=== PATIENT | male | born 1965 | race Caucasian/White ===

== ENCOUNTER 2022-05-30 11:10 | Inpatient (IN) | payer MEDICAID ==
[~2022-05-30] VITALS: Ht 165.1 cm; Wt 55.6 kg
[2022-05-30] MEDS ORDERED: SODIUM CHLORIDE 0.9% 1,000 ML IV ONE ×2 (12:00→15:30)
[2022-05-30 12:02] LABS: BASOPHILS % 0.3 % (0.0-2.0); EOSINOPHILS % 0.6 % (0.0-5.0); HEMATOCRIT. 34.4 % (42.0-52.0); HEMOGLOBIN. 12.1 g/dL (14.0-18.0); LYMPHOCYTES % 13.2 % (20.0-50.0); MEAN CORPUSCULAR HEMOGLOBIN 29.8 pg (28.0-32.0); MEAN PLATELET VOLUME 9.1 fl (7.4-10.4); MONOCYTES % 4.2 % (2.0-8.0); NEUTROPHILS % 81.7 % (40.0-76.0); PLATELET 261 x1000/uL (130-400); RED BLOOD CELL COUNT 4.05 mill/uL (4.7-6.1); RED CELL DISTRIBUTION WIDTH 14.8 % (11.6-14.6)
[2022-05-30 12:09] LABS: PROTHROMBIN TIME 10.7 sec (9.6-11.0)
[2022-05-30 12:10] LABS: CHLORIDE 95 mEq/L (98-107)
[2022-05-30 12:15] LABS: ETHANOL BLOOD < 10 mg/dL
[2022-05-30 12:21] LABS: BETA HYDROXYBUTYRATE 1.9 mMol/L (0.0-0.3); PHOSPHORUS 6.5 mg/dL (2.5-4.9)
[2022-05-30] MEDS ORDERED: ONDANSETRON HCL 4MG/2ML INJ IV ONE (14:30)
[2022-05-30] MEDS ORDERED: METOCLOPRAMIDE HCL 10MG/2ML VIAL IV ONE (14:30)
[2022-05-30] MEDS ORDERED: DEXTROSE 50% WATER 50ML SYRINGE IV PRN ×2 (15:30→17:00)
[2022-05-30] MEDS ORDERED: MAGNESIUM/ALUMINUM HYDROXIDE/SIMETHICONE 30ML UDC PO PRN (15:45)
[2022-05-30] MEDS ORDERED: ACETAMINOPHEN 325MG TABLET PO PRN ×2 (15:45)
[2022-05-30] MEDS ORDERED: IPRATROPIUM/ALBUTEROL 0.5-3(2.5)MG/3ML NEB HHN PRN (15:45)
[2022-05-30] MEDS ORDERED: GUAIFENESIN 200MG/10ML SUGAR FREE UDC PO PRN (15:45)
[2022-05-30] MEDS ORDERED: DOCUSATE SODIUM 100MG CAPSULE PO PRN (15:45)
[2022-05-30] MEDS ORDERED: CLONIDINE 0.1MG TABLET PO PRN (15:45)
[2022-05-30] MEDS ORDERED: HYDROCODONE/ACETAMINOPHEN 5/325MG TABLET PO PRN (15:45)
[2022-05-30] MEDS ORDERED: INSULIN REGULAR (HUMULIN R) 300UNITS/3ML VIAL IV NR (16:15)
[2022-05-30] MEDS: SEVELAMER CARBONATE 800 MG TABLET PO SCH (17:00)
[2022-05-30] MEDS ORDERED: BLOOD SUGAR DIAGNOSTIC STRIP TEST SCH (17:00)
[2022-05-30] MEDS: ENOXAPARIN 30MG/0.3ML SYR SUBCUT SCH (17:13)
[2022-05-30] MEDS: BLOOD SUGAR DIAGNOSTIC STRIP TEST SCH ×2 (17:14→20:04)
[2022-05-30] MEDS ORDERED: PIPERACILLIN/TAZ 3.375G PREMIX 50 ML IV NR (17:15)
[2022-05-30 17:30] VITALS: BP 158/88
[2022-05-30] MEDS: INSULIN LISPRO 100 UNITS/ML SUBCUT SCH ×2 (17:32→20:04)
[2022-05-30 17:49] VITALS: BP 158/88
[2022-05-30 18:05] LABS: BG BASE EXCESS 2.5 mmol/L (-2.0-2.0); BG CARBOXYHEMOGLOBIN 0.2 % (0.5-1.5); BG DEOXYHEMOGLOBIN 4.6 % (0.0-5.0); BG FRACTION INSPIRED OXYGEN 21; BG HCO3 ACT 28.4 mmol/L (22.0-26.0); BG METHEMOGLOBIN 0.2 % (0.0-1.5); BG OXYGEN SATURATION 95.4 % (92.0-98.5); BG PCO2 48.7 mmHg (35.0-45.0); BG PH 7.383 (7.350-7.450); BG PO2 83.6 mmHg (75.0-100.0); BG SAMPLE SITE RIGHT BRACHIAL; BG VENT MODE ROOM AIR
[2022-05-30] MEDS ORDERED: INSULIN LISPRO 100 UNITS/ML SUBCUT SCH (18:20)
[2022-05-30 20:00] VITALS: BP 154/80
[2022-05-30] MEDS: ONDANSETRON HCL 4MG/2ML INJ IV PRN (20:10)
[2022-05-30] MEDS: SODIUM CHLORIDE 0.9% 1,000 ML IV SCH (20:10)
[2022-05-30 21:52] LABS: TOTAL IRON BINDING CAPACITY 250 ug/dL (250-450)
[2022-05-30] MEDS: INSULIN GLARGINE 100 UNITS/ML SUBCUT SCH (21:59)
[2022-05-30 22:04] LABS: FERRITIN 565 ng/mL (22-322)
[2022-05-30 22:26] LABS: VITAMIN B12 SERUM 979 pg/mL (211-911)
[2022-05-30] MEDS ORDERED: *PATIENT'S OWN MEDICATION STORAGE XX SCH (23:15)
[2022-05-30] MEDS ORDERED: TORS20TA4 PO (23:18)
[2022-05-30] MEDS ORDERED: LOSA25TA26 PO (23:18)
[2022-05-30] MEDS ORDERED: ATOR10TA69 PO (23:18)
[2022-05-30] MEDS ORDERED: SEVE800T8 MT (23:18)
[2022-05-30] MEDS ORDERED: CARV3.1242 PO (23:18)
[2022-05-30] MEDS ORDERED: AMLO10TA80 PO (23:18)
[2022-05-30] MEDS ORDERED: ERGO1250 (23:18)
[2022-05-30] MEDS ORDERED: FERR325T30 PO (23:18)
[2022-05-30] MEDS ORDERED: EMPA10TA PO (23:18)
[2022-05-31] VITALS: BP 147/86
[2022-05-31 04:00] VITALS: BP 159/78
[2022-05-31] MEDS: ONDANSETRON HCL 4MG/2ML INJ IV PRN ×3 (05:35→18:56)
[2022-05-31 06:03] LABS: BASOPHILS % 0.3 % (0.0-2.0); EOSINOPHILS % 1.7 % (0.0-5.0); HEMATOCRIT. 29.7 % (42.0-52.0); HEMOGLOBIN. 10.4 g/dL (14.0-18.0); LYMPHOCYTES % 20.6 % (20.0-50.0); MEAN CORPUSCULAR HEMOGLOBIN 30.3 pg (28.0-32.0); MEAN CORPUSCULAR VOLUME 86.3 fL (80.0-94.0); MEAN PLATELET VOLUME 9.4 fl (7.4-10.4); MONOCYTES % 5.7 % (2.0-8.0); NEUTROPHILS % 71.7 % (40.0-76.0); PLATELET 234 x1000/uL (130-400); RED BLOOD CELL COUNT 3.44 mill/uL (4.7-6.1); RED CELL DISTRIBUTION WIDTH 14.8 % (11.6-14.6)
[2022-05-31] MEDS: BLOOD SUGAR DIAGNOSTIC STRIP TEST SCH ×4 (06:12→20:51)
[2022-05-31] MEDS: SEVELAMER CARBONATE 800 MG TABLET PO SCH ×3 (06:13→16:31)
[2022-05-31] MEDS: SODIUM CHLORIDE 0.9% 1,000 ML IV SCH (06:22)
[2022-05-31] MEDS: INSULIN LISPRO 100 UNITS/ML SUBCUT SCH ×4 (06:23→20:52)
[2022-05-31 07:10] LABS: CHLORIDE 103 mEq/L (98-107); HDL CHOLESTEROL 49 mg/dL (40-59); LDL CHOLESTEROL 81 mg/dL (5-100); T4 FREE 1.53 ng/dL (0.76-1.46)
[2022-05-31 08:00] VITALS: BP 163/88
[2022-05-31] MEDS ORDERED: KCL 20MEQ/100ML PREMIX 100 ML IV SCH (09:00)
[2022-05-31] MEDS ORDERED: PIPERACILLIN/TAZOBACTAM 3.375 G in DEXTROSE 5% WATER 50 ML IV SCH (09:00)
[2022-05-31] MEDS ORDERED: PANTOPRAZOLE SODIUM 40 MG/VIAL IV SCH (09:00)
[2022-05-31] MEDS: AMLODIPINE 10MG TABLET PO SCH (09:49)
[2022-05-31] MEDS: SODIUM CHLORIDE 0.45% 1,000 ML IV SCH (09:59)
[2022-05-31] MEDS ORDERED: ALBUTEROL (0.083%) 2.5MG/3ML NEB HHN PRN (10:15)
[2022-05-31] MEDS ORDERED: NALOXONE HCL 0.4MG/ML VIAL IV PRN (10:15)
[2022-05-31] MEDS ORDERED: IPRATROPIUM BROMIDE (0.02%) 0.5MG/2.5ML NEB HHN PRN (10:15)
[2022-05-31] MEDS: PIPERACILLIN/TAZOBACTAM 3.375 G in DEXTROSE 5% WATER 50 ML IV SCH ×2 (11:15→21:27)
[2022-05-31 12:00] VITALS: BP 136/77
[2022-05-31 12:51] LABS: CLARITY URINE CLEAR (CLEAR); COLOR URINE YELLOW (YELLOW); KETONES URINE 1+ (NEGATIVE); LEUKOCYTE ESTERASE URINE NEGATIVE (NEGATIVE); NITRITE URINE NEGATIVE (NEGATIVE); OCCULT BLOOD URINE 1+ (NEGATIVE); PH URINE 5.5 (4.5-8.0); PROTEIN URINE 4+ (NEGATIVE); SPECIFIC GRAVITY URINE 1.025 (1.005-1.030); UROBILINOGEN URINE 0.2 E.U./dL (0.2-1.0)
[2022-05-31 13:28] LABS: CREATINE KINASE 73 IU/L (39-308)
[2022-05-31 13:33] LABS: *AMPHETAMINES SCREEN URINE NEGATIVE (NEGATIVE); *BARBITURATES SCREEN URINE NEGATIVE (NEGATIVE); *BENZODIAZEPINES SCREEN URINE NEGATIVE (NEGATIVE); *COCAINE SCREEN URINE NEGATIVE (NEGATIVE); CANNABINOID URINE SCREEN NEGATIVE (NEGATIVE); METHADONE URINE SCREEN NEGATIVE (NEGATIVE); OPIATES URINE SCREEN NEGATIVE (NEGATIVE); PHENCYCLIDINE URINE SCREEN NEGATIVE (NEGATIVE)
[2022-05-31 16:00] VITALS: BP 140/70
[2022-05-31] MEDS ORDERED: PROCHLORPERAZINE 10MG/2ML VIAL IV PRN (17:00)
[2022-05-31] MEDS: ENOXAPARIN 30MG/0.3ML SYR SUBCUT SCH (17:00)
[2022-05-31] MEDS: PANTOPRAZOLE SODIUM 40 MG/VIAL IV SCH (18:56)
[2022-05-31 20:00] VITALS: BP_SYST 148; BP_SYST 150; BP_DIAS 80; BP_DIAS 83
[2022-05-31] MEDS: INSULIN GLARGINE 100 UNITS/ML SUBCUT SCH (22:00)
[2022-05-31 22:08] LABS: HEPATITIS B SURFACE ANTIGEN NEGATIVE
[2022-06-01] VITALS: BP 156/82
[2022-06-01 04:00] VITALS: BP 149/80
[2022-06-01] MEDS: SODIUM CHLORIDE 0.45% 1,000 ML IV SCH ×2 (04:48→22:04)
[2022-06-01] MEDS: BLOOD SUGAR DIAGNOSTIC STRIP TEST SCH ×4 (05:43→21:58)
[2022-06-01] MEDS: INSULIN LISPRO 100 UNITS/ML SUBCUT SCH ×4 (05:46→22:00)
[2022-06-01] MEDS: ONDANSETRON HCL 4MG/2ML INJ IV PRN ×3 (06:29→22:04)
[2022-06-01 06:57] LABS: BASOPHILS % 0.4 % (0.0-2.0); EOSINOPHILS % 2.2 % (0.0-5.0); HEMATOCRIT. 29.3 % (42.0-52.0); HEMOGLOBIN. 10.1 g/dL (14.0-18.0); LYMPHOCYTES % 19.9 % (20.0-50.0); MEAN CORPUSCULAR HEMOGLOBIN 30.5 pg (28.0-32.0); MEAN CORPUSCULAR VOLUME 88.6 fL (80.0-94.0); MEAN PLATELET VOLUME 9.4 fl (7.4-10.4); MONOCYTES % 3.6 % (2.0-8.0); NEUTROPHILS % 73.9 % (40.0-76.0); PLATELET 186 x1000/uL (130-400); RED CELL DISTRIBUTION WIDTH 14.8 % (11.6-14.6)
[2022-06-01] MEDS: SEVELAMER CARBONATE 800 MG TABLET PO SCH ×3 (07:10→17:10)
[2022-06-01 08:00] VITALS: BP 163/88
[2022-06-01] MEDS ORDERED: POTASSIUM CHLORIDE 20MEQ TABLET SR PO SCH (08:30)
[2022-06-01] MEDS: PIPERACILLIN/TAZOBACTAM 3.375 G in DEXTROSE 5% WATER 50 ML IV SCH ×2 (08:47→21:58)
[2022-06-01] MEDS: PANTOPRAZOLE SODIUM 40 MG/VIAL IV SCH ×2 (08:47→18:42)
[2022-06-01] MEDS: AMLODIPINE 10MG TABLET PO SCH (08:47)
[2022-06-01 10:13] LABS: FOLIC ACID (FOLATE) SERUM >20 ng/mL ng/mL (>5.38)
[2022-06-01 12:00] VITALS: BP 141/70
[2022-06-01] MEDS ORDERED: POTASSIUM CHLORIDE INJ 40 MEQ in DEXT 5% WATER 250 ML IV ONE (12:30)
[2022-06-01] MEDS: KCL 20MEQ/100ML X 2 FOR TOTAL KCL 40MEQ/200ML IV SCH ×2 (14:32→16:43)
[2022-06-01 16:00] VITALS: BP 152/80
[2022-06-01] MEDS: ENOXAPARIN 30MG/0.3ML SYR SUBCUT SCH (18:42)
[2022-06-01 18:48] LABS: PHOSPHORUS 4.2 mg/dL (2.5-4.9)
[2022-06-01 20:00] VITALS: BP 139/88
[2022-06-01] MEDS: INSULIN GLARGINE 100 UNITS/ML SUBCUT SCH (22:04)
[2022-06-02] VITALS: BP 152/88
[2022-06-02 04:00] VITALS: BP 145/66
[2022-06-02] MEDS: BLOOD SUGAR DIAGNOSTIC STRIP TEST SCH ×2 (05:51→12:35)
[2022-06-02] MEDS: INSULIN LISPRO 100 UNITS/ML SUBCUT SCH ×2 (05:51→12:39)
[2022-06-02 05:52] VITALS: BP 149/89
[2022-06-02 06:38] LABS: BASOPHILS % 0.5 % (0.0-2.0); EOSINOPHILS % 4.1 % (0.0-5.0); HEMATOCRIT. 28.7 % (42.0-52.0); HEMOGLOBIN. 10.3 g/dL (14.0-18.0); LYMPHOCYTES % 22.9 % (20.0-50.0); MEAN CORPUSCULAR HEMOGLOBIN 31.7 pg (28.0-32.0); MEAN CORPUSCULAR VOLUME 87.9 fL (80.0-94.0); MONOCYTES % 5.6 % (2.0-8.0); NEUTROPHILS % 66.9 % (40.0-76.0); PLATELET 176 x1000/uL (130-400); RED BLOOD CELL COUNT 3.26 mill/uL (4.7-6.1); RED CELL DISTRIBUTION WIDTH 14.4 % (11.6-14.6)
[2022-06-02 07:10] LABS: PHOSPHORUS 3.3 mg/dL (2.5-4.9)
[2022-06-02] MEDS: SEVELAMER CARBONATE 800 MG TABLET PO SCH ×2 (07:10→12:10)
[2022-06-02 08:00] VITALS: BP 142/86
[2022-06-02] MEDS ORDERED: POTASSIUM CHLORIDE 20MEQ TABLET SR PO NR (08:00)
[2022-06-02] MEDS: POTASSIUM CHLORIDE 20MEQ TABLET SR PO NR ×2 (08:30→12:39)
[2022-06-02] MEDS: PIPERACILLIN/TAZOBACTAM 3.375 G in DEXTROSE 5% WATER 50 ML IV SCH (09:07)
[2022-06-02] MEDS: AMLODIPINE 10MG TABLET PO SCH (09:07)
[2022-06-02] MEDS: PANTOPRAZOLE SODIUM 40 MG/VIAL IV SCH (09:07)
[2022-06-02] MEDS: ONDANSETRON HCL 4MG/2ML INJ IV PRN (09:10)
[2022-06-02] MEDS ORDERED: PROT40 PO (10:59)
[2022-06-02 12:00] VITALS: BP 144/83
[2022-06-02 13:11] LABS: ANTI-NUCLEAR ANTIBODIES DIRECT Negative (Negative)
[2022-06-02 13:29] VITALS: BP 144/83
== END 2022-06-02 15:50 | disposition home or self-care (01) | DRG 48 ==
LOC: ER 11:39 → 7EST 14:59 → EDBEDREQTM 15:29 → EDBEDREQ 15:29
PROVIDERS: ADMIT Hospitalist; ATTEND Hospitalist
DX: E11.43 Type 2 diabetes mellitus with diabetic autonomic (poly)neuropathy (principal); I13.0 Hypertensive heart and chronic kidney disease with heart failure and stage 1 through stage 4 chronic kidney disease, or unspecified chronic kidney disease; N17.9 Acute kidney failure, unspecified; E44.0 Moderate protein-calorie malnutrition; E83.39 Other disorders of phosphorus metabolism; E83.41 Hypermagnesemia; D63.1 Anemia in chronic kidney disease; E11.22 Type 2 diabetes mellitus with diabetic chronic kidney disease; K20.90 Esophagitis, unspecified without bleeding; K31.84 Gastroparesis; E11.10 Type 2 diabetes mellitus with ketoacidosis without coma; K52.9 Noninfective gastroenteritis and colitis, unspecified; K40.90 Unilateral inguinal hernia, without obstruction or gangrene, not specified as recurrent; E86.0 Dehydration; N18.9 Chronic kidney disease, unspecified; E78.1 Pure hyperglyceridemia; E78.5 Hyperlipidemia, unspecified; Z68.24 Body mass index [BMI] 24.0-24.9, adult; E87.6 Hypokalemia; I95.1 Orthostatic hypotension; F32.A Depression, unspecified; N32.89 Other specified disorders of bladder; I45.2 Bifascicular block; N40.0 Benign prostatic hyperplasia without lower urinary tract symptoms; Z79.4 Long term (current) use of insulin; Z79.84 Long term (current) use of oral hypoglycemic drugs; Z79.899 Other long term (current) drug therapy
CPT/HCPCS: 36415; 36600; 71045; 74176; 76770; 80048; 80053; 80061; 80305; 80320; 81003; 82010; 82270; 82375; 82550; 82570; 82607; 82728; 82746; 82805; 82962; 83036; 83540; 83550; 83605; 83735; 83880; 84100; 84153; 84156; 84439; 84443; 84481; 84484; 85025; 85044; 86038; 86160; 86705; 86709; 86803; 87015; 87045; 87340; 87427; 87449; 87493; 89055; 93005; 93306; 93970; 99291; C9113; J1650; J1815; J2405; J2543; J2765; J3480; J7030; J7060; G0103; G0480